=== PATIENT | male | born 1990 ===

== ENCOUNTER 2021-07-03 11:34 | Day surgery (SDC) | payer MEDICAID ==
[~2021-07-03 11:34] MED LIST: Lactated Ringers 1,000 ML IV SCH; Sodium Chloride 0.9% 10 ML SDV IV PRN; Sodium Chloride 0.9% 10 ML Syringe FLUSH PRN; Sodium Chloride 0.9% 2.5 ML Syringe FLUSH PRN
--- NOTE | 2021-07-03 11:52 | PCM.PREANE ---
Preanesthetic Assessment - Procedure Proposed Procedure: Colonscopy - Anesthesia/Transfusion/Family Hx Anesthesia History: No Prior Anesthesia Transfusion History: No Prior Transfusion(s) - Review of Systems General: No Symptoms Pulmonary: No Symptoms Cardiovascular: No Symptoms Gastrointestinal: No Symptoms (Occas HB) Neurological: No Symptoms Other: Reports: None (h/o Kidney stone) - Physical Assessment NPO Status Date: 07/01/21 NPO Status Time: 20:00 (Solids, >8hrs liq) Vital Signs: Last Vital Signs Temp 97.7 F 07/03/21 11:22 Pulse 90 07/03/21 11:22 Resp 16 07/03/21 11:22 BP 153/94 H 07/03/21 11:22 Pulse Ox 98 07/03/21 11:22 Height: 5 ft 10 in Weight: 85.729 kg ASA Class: 2 Mental Status: Alert & Oriented x3 Airway Class: Mallampati = 2 Dentition: Reports: Normal Dentition Thyro-Mental Finger Breadths: 3 Mouth Opening Finger Breadths: 3 ROM/Head Extension: Full Lungs: Clear to Auscultation, Normal Respiratory Effort Cardiovascular: Regular Rate, Regular Rhythm - Allergies Allergies/Adverse Reactions: Allergies Allergy/AdvReac Type Severity Reaction Status Date / Time No Known Allergies Allergy Verified 06/27/21 10:40 - Acknowledgements Anesthesia Type Planned: General Anesthesia Pt an Appropriate Candidate for the Planned Anesthesia: Yes Alternatives and Risks of Anesthesia Discussed w Pt/Guardian: Yes Pt/Guardian Understands and Agrees with Anesthesia Plan: Yes PreAnesthesia Questionnaire - Past Health History Medical/Surgical History: Denies Medical/Surgical History HEENT History: Reports: Other (See Below) Other HEENT History: wears glasses Cardiovascular History: Reports: None Respiratory History: Reports: None Gastrointestinal History: Reports: Other (See Below) Other Gastrointestinal History: right lower quad pain Genitourinary History: Reports: Renal Calculus Musculoskeletal History: Reports: None Neurological History: Reports: Migraines Psychiatric History: Reports: Anxiety Endocrine/Metabolic History: Reports: None Hematologic History: Reports: None Immunologic History: Reports: None Oncologic (Cancer) History: Reports: None Dermatologic History: Reports: None - Past Surgical History Head Surgeries/Procedures: Reports: None HEENT Surgical History: Reports: None Cardiovascular Surgical History: Reports: None Respiratory Surgical History: Reports: None GI Surgical History: Reports: None Male Surgical History: Reports: None Endocrine Surgical History: Reports: None Neurological Surgical History: Reports: None Musculoskeletal Surgical History: Reports: None Oncologic Surgical History: Reports: None Dermatological Surgical History: Reports: None - SUBSTANCE USE Tobacco Use Status *Q: Never Tobacco User - HOME MEDS Home Medications: Home Meds . [No Known Home Meds] 06/27/21 [History] - CURRENT (IN HOUSE) MEDS Current Meds: Current Medications Lactated Ringer's (Ringers, Lactated) 1,000 mls @ 125 mls/hr IV ASDIRECTED KADE Last Admin: 07/03/21 11:27 Dose: 125 mls/hr Documented by: Sodium Chloride (Sodium Chloride 0.9% 10 Ml Syringe) 10 ml FLUSH ASDIRECTED PRN PRN Reason: Keep Vein Open Sodium Chloride (Sodium Chloride 0.9% 2.5 Ml Syringe) 2.5 ml FLUSH ASDIRECTED PRN PRN Reason: Keep Vein Open Sodium Chloride (Sodium Chloride 0.9% 10 Ml Syringe) 10 ml FLUSH ASDIRECTED PRN PRN Reason: Keep Vein Open Sodium Chloride (Sodium Chloride 0.9% 2.5 Ml Syringe) 2.5 ml FLUSH ASDIRECTED PRN PRN Reason: Keep Vein Open Sodium Chloride (Sodium Chloride 0.9% 10 Ml Sdv) 10 ml IV ASDIRECTED PRN PRN Reason: IV Use
[2021-07-03] MEDS ORDERED: fentaNYL 100 MCG/2 ML SDV ONE (13:02)
[2021-07-03] MEDS ORDERED: Propofol 200 MG/20 ML SDV ONE (13:02)
[2021-07-03] MEDS ORDERED: Glycopyrrolate 0.2 MG/ML SDV ONE (13:11)
[2021-07-03] MEDS ORDERED: ePHEDrine 50 MG/ML SDV ONE (13:11)
--- NOTE | 2021-07-03 14:55 | PCM.POSTAN ---
POST ANESTHESIA ASSESSMENT - MENTAL STATUS Mental Status: Alert, Oriented - VITAL SIGNS Vital Signs: Last Vital Signs Temp 97.7 F 07/03/21 11:22 Pulse 77 07/03/21 14:52 Resp 13 07/03/21 14:52 BP 118/61 07/03/21 14:52 Pulse Ox 97 07/03/21 14:52 - RESPIRATORY Respiratory Status: Respiratory Rate WNL, Airway Patent, O2 Saturation Stable - CARDIOVASCULAR CV Status: Pulse Rate WNL, Blood Pressure Stable - GASTROINTESTINAL GI Status: No Symptoms - PAIN Pain Score: 0 - POST OP HYDRATION Hydration Status: Adequate & Stable
--- NOTE | 2021-07-03 14:56 | PCM48HPAN ---
Post Anesthesia Note - EVALUATION WITHIN 48HRS OF ANESTHETIC Vital Signs in Normal Range: Yes Patient Participated in Evaluation: Yes Respiratory Function Stable: Yes Airway Patent: Yes Cardiovascular Function Stable: Yes Hydration Status Stable: Yes Pain Control Satisfactory: Yes Nausea and Vomiting Control Satisfactory: Yes Mental Status Recovered: Yes Vital Signs: Last Vital Signs Temp 97.7 F 07/03/21 11:22 Pulse 77 07/03/21 14:52 Resp 13 07/03/21 14:52 BP 118/61 07/03/21 14:52 Pulse Ox 97 07/03/21 14:52 - COMMENTS/OBSERVATIONS Free Text/Narrative:: Pt doing well post-op. VSS. No apparent anesthetic complications. Dr. Simon Arreaga
--- NOTE | 2021-07-03 14:57 | PCM.OPNOTE ---
- General Post-Op/Procedure Note Date of Surgery/Procedure: 07/03/21 Operative Procedure(s): Diagnostic colonoscopy Findings: Random biopsies of cecum, ascending, transverse, descending and sigmoid colon polyp, rectal polyp. Normal appearing colonic mucosa and hemorrhoids. Pre Op Diagnosis: RLQ pain Post-Op Diagnosis: Same Anesthesia Technique: MAC Primary Surgeon: Barbara Tomas Condition: Good
--- NOTE | 2021-07-04 20:53 | OR ---
SURGEON: BARBARA TOMAS MD DATE OF PROCEDURE: 07/03/2021 PREOPERATIVE DIAGNOSIS: Right lower quadrant pain. POSTOPERATIVE DIAGNOSIS: Right lower quadrant pain. PROCEDURE PERFORMED: Diagnostic colonoscopy with biopsy. PRIMARY SURGEON: Barbara Tomas MD ANESTHESIA: MAC. INSTRUMENT USED: Olympus colonoscope. EXTENT OF EXAM: To the cecum. PREPARATION: Good. LIMITATIONS: None. INDICATIONS FOR EXAMINATION: The patient is a 30-year-old male who presented to clinic with intermittent right lower quadrant pain. As a part of his workup, the decision was made to proceed with diagnostic colonoscopy. I explained the procedure, expected perioperative course, and the risks. He verbalized understanding and wishes to proceed. PROCEDURE IN DETAIL: The patient was brought in to the endoscopy suite and placed in a left lateral decubitus position. A time-out was completed verifying the patient's name, age, date of , allergies, and procedure to be performed. Monitored anesthesia care was induced and continuous oxygen was provided via nasal cannula throughout the procedure. After adequate sedation was achieved, a digital rectal exam was performed. This exam was within normal limits. A well-lubricated colonoscope was inserted in the rectum and advanced under direct visualization to the level of the cecum. The cecum was identified by both visual and anatomic landmarks. A photograph was taken of the cecal cap as well as with the scope retroflexed within the cecum. The scope was then fully withdrawn while examining the color, texture, anatomy, and integrity of the mucosa from the cecum to the anal canal. The patient's terminal ileum was well inspected and found to be free of any inflammation or ulceration. The colonic mucosa all appeared normal. Random biopsies were taken of the cecum, ascending colon, transverse colon, descending colon, sigmoid colon, and rectum. The scope was then retroflexed within the rectum to allow visualization of the anal canal opening. The patient did appear to have some enlarged hemorrhoids. The scope was then straightened out and fully withdrawn. The cecum to anus time was greater than 6 minutes. The patient tolerated the procedure well and was transferred to the PACU in stable condition. ENDOSCOPIC DIAGNOSIS: Right lower quadrant pain. RECOMMENDATION: Follow up in clinic in two weeks. DIMITRI OKEEFE /[id number]
== END 2021-07-03 15:15 | disposition home or self-care (01) ==
LOC: MW.SDS 11:34
PROVIDERS: ATTEND Surgery
DX: R19.4 Change in bowel habit (principal); K64.9 Unspecified hemorrhoids
CPT/HCPCS: 00811; 88305; J2704; J3010; J3490; J7120